=== PATIENT | female | born 1995 | race Caucasian/White ===

== ENCOUNTER 2017-01-14 13:57 | Emergency (ER) | payer BC ==
[2017-01-14 14:23] VITALS: BP 108/61
--- NOTE | 2017-01-14 14:41 | UC ---
Respiratory Complaint HPI - History of Current Complaint Chief Complaint: UCGU Stated Complaint: PERSONAL Time Seen by Provider: 01/14/17 14:41 Hx Last Menstrual Period: 2-3 weeks ago - Allergies/Home Medications Allergies/Adverse Reactions: Allergies Allergy/AdvReac Type Severity Reaction Status Date / Time Penicillins Allergy Hives Verified 01/14/17 14:16 Home Medications: Home Medications Iud 01/14/17 [History] PMH/Surg Hx/FS Hx/Imm Hx - Surgical History Surgical History: Yes Surgery Procedure, Year, and Place: appendix. bunions - Family History Known Family History: Positive: Other - cancer - Social History Alcohol Use: Occasionally Substance Use Type: None Smoking Status (MU): Never Smoked Tobacco Physical Exam Vital Signs: Initial Vital Signs Temp 37.1 C 01/14/17 14:18 Pulse 69 01/14/17 14:18 Resp 16 01/14/17 14:18 BP 108/61 01/14/17 14:18 Pulse Ox 100 01/14/17 14:18 UC Diagnostic Evaluation - Laboratory O2 Sat by Pulse Oximetry: 100
--- NOTE | 2017-01-14 14:58 | UC ---
Complaint Female HPI - HPI Summary HPI Summary: 21 YEAR OLD FEMALE PRESENTS WITH COMPLAINS OF ABDOMINAL PAIN AFTER RECENT INSERTION OF IUD. I WILL SEND HER TO THE ER TO RULE OUT IUD DISLODGMENT. - History Of Current Complaint Chief Complaint: UCGU Stated Complaint: PERSONAL Time Seen by Provider: 01/14/17 14:41 Hx Obtained From: Patient Hx Last Menstrual Period: 2-3 weeks ago Onset/Duration: Sudden Onset Timing: Constant Severity Initially: Moderate Severity Currently: Moderate Pain Scale Used: 0-10 Numeric - 7 Character: Sharp Aggravating Factor(s): [place] - Allergies/Home Medications Allergies/Adverse Reactions: Allergies Allergy/AdvReac Type Severity Reaction Status Date / Time Penicillins Allergy Hives Verified 01/14/17 14:16 Home Medications: Home Medications Iud 01/14/17 [History] PMH/Surg Hx/FS Hx/Imm Hx Previously Healthy: Yes - Surgical History Surgical History: Yes Surgery Procedure, Year, and Place: appendix. bunions - Family History Known Family History: Positive: Other - cancer - Social History Alcohol Use: Occasionally Substance Use Type: None Smoking Status (MU): Never Smoked Tobacco Review of Systems Constitutional: Negative Skin: Negative Eyes: Negative ENT: Negative Respiratory: Negative Cardiovascular: Negative Gastrointestinal: Negative Genitourinary: Other - PELVIC PAIN Motor: Negative Neurovascular: Negative Musculoskeletal: Negative Neurological: Negative Psychological: Negative All Other Systems Reviewed And Are Negative: Yes Physical Exam Triage Information Reviewed: Yes Vital Signs: Initial Vital Signs Temp 37.1 C 01/14/17 14:18 Pulse 69 01/14/17 14:18 Resp 16 01/14/17 14:18 BP 108/61 01/14/17 14:18 Pulse Ox 100 01/14/17 14:18 Vital Signs Reviewed: Yes Eye Exam: Normal ENT Exam: Normal Dental Exam: Normal Neck exam: Normal Neck: Positive: 1 Respiratory Exam: Normal Cardiovascular Exam: Normal Abdominal Exam: Normal Musculoskeletal Exam: Normal Neurological Exam: Normal Psychological Exam: Normal Skin Exam: Normal Complaint Female Dx - Differential Dx/Diagnosis Provider Diagnoses: PELVIC PAIN Discharge - Discharge Plan Condition: Stable Disposition: HOME Patient Education Materials: Pelvic Pain in Women (ED) Referrals: No Primary Care Phys,NOPCP [Primary Care Provider] - Additional Instructions: PLEASE GO TO ER TO ASSESS IUD PLACEMENT.
== END 2017-01-14 15:00 | disposition home or self-care (01) ==
LOC: UCEAST 13:57
DX: R10.2 Pelvic and perineal pain (principal); Z88.0 Allergy status to penicillin
CPT/HCPCS: 99211; G0463

== ENCOUNTER 2017-01-14 15:55 | Emergency (ER) | payer BC ==
--- NOTE | 2017-01-14 18:05 | RAD ---
HISTORY: Pelvic pain COMPARISONS: None TECHNIQUE: Multiple transverse and longitudinal ultrasound images were obtained of the pelvis using grayscale, color Doppler, and spectral Doppler imaging using the endovaginal transducer. FINDINGS: UTERUS: The uterus measures 8.1 x 3.5 x 5.3 cm. The uterus is normal in shape, size, contour, and echotexture. ENDOMETRIUM: The endometrial stripe is smooth. The endometrium measures 0.5 cm in thickness. An IUD is noted centrally within the endometrial cavity towards the fundus. CUL-DE-SAC: There is a small amount of simple fluid within the cul-de-sac. This may be physiologic in a reproductive age female. RIGHT OVARY: The right ovary measures 2.7 x 1.4 x 3.5 cm. Multiple follicles are noted . Normal arterial and venous waveforms are identifiable within the ovary on spectral Doppler imaging. LEFT OVARY: The left ovary measures 2.7 x 1.7 x 2.8 cm. Multiple follicles are noted. Normal arterial and venous waveforms are identifiable within the ovary on spectral Doppler imaging. BLADDER: The bladder is not well visualized. OTHER: None IMPRESSION: 1. AN IUD IS NOTED CENTRALLY WITHIN THE ENDOMETRIAL CAVITY TOWARDS THE FUNDUS. 2. THERE IS SMALL AMOUNT OF FLUID WITHIN THE PELVIS. THIS MAY BE PHYSIOLOGIC WITHIN A REPRODUCTIVE AGE FEMALE FEMALE. 3. OTHERWISE UNREMARKABLE ULTRASOUND OF THE PELVIS. NO SONOGRAPHIC FEATURES OF TORSION. PLEASE NOTE THAT PARTIAL OR INTERMITTENT TORSION MAY BE SONOGRAPHICALLY NORMAL.
[2017-01-14 19:07] VITALS: BP 110/81
--- NOTE | 2017-01-15 07:46 | ED ---
Rodger Andrea Angela, scribed for Torito Kirby MD on 01/14/17 at 1659 . GI/ HPI - HPI Summary HPI Summary: This pt is a 21 y/o female presenting to [facility] from [facility] c/o worsening pelvic pain s/p IUD placement. Pt reports the IUD was placed on 10/30/16 and 2 weeks after her pain began intermittently, worsening and becoming more constant now over the last couple of weeks. She states her pain feels like menstrual cramps and describes rectal pressure with urination. Pt notes that her pain is aggravated with intercourse. She reports her IUD was placed at [facility] where she was seen twice for her pain and was told both times the IUD site was inflamed. [facility] was only able to do pelvic exams and was not able to do an US as they didn't have one. Pt was last seen in [place] 2-3 weeks ago. She denies back pain, fever, urinary symptoms, dysuria, hematuria. LMP: sporadic and unsure. Pt is concerned for poor placement of IUD. - History of Current Complaint Chief Complaint: EDOBProblems Time Seen by Provider: 01/14/17 16:30 Stated Complaint: CRAMPING/ABNORMAL VAG BLEEDING Hx Obtained From: Patient Hx Last Menstrual Period: 2-3 weeks ago Onset/Duration: Started Weeks Ago, Still Present Timing: Lasting Weeks Pain Intensity: 3 Pain Characteristics: Cramping Associated Signs and Symptoms: Negative: Back Pain, Dizziness, Weakness, Nausea , Vomiting, Dysuria Additional Signs & Symptoms: Positive: IUD. Negative: Vaginal Bleeding Aggravating Factor(s): Nothing Alleviating Factor(s): Nothing - Allergy/Home Medications Allergies/Adverse Reactions: Allergies Allergy/AdvReac Type Severity Reaction Status Date / Time Penicillins Allergy Hives Verified 01/14/17 14:16 PMH/Surg Hx/FS Hx/Imm Hx Endocrine/Hematology History: Denies: Hx Blood Disorders Cardiovascular History: Denies: Hx Congenital Heart Disease Respiratory History: Denies: Hx Asthma GI History: Denies: Hx Crohn's Disease, Hx Gastroesophageal Reflux Disease, Hx Ulcer - Surgical History Surgery Procedure, Year, and Place: appendix. bunions Infectious Disease History: No Infectious Disease History: Denies: History Other Infectious Disease, Traveled Outside the [place] in Last 30 Days - Family History Known Family History: Positive: Other - cancer - Social History Alcohol Use: Occasionally Substance Use Type: Reports: None Smoking Status (MU): Never Smoked Tobacco Review of Systems Negative: Fever, Chills Positive: Other - abdominal cramps Positive: other - rectal pressure with urination Positive: Other - NEGATIVE: back pain All Other Systems Reviewed And Are Negative: Yes Physical Exam Triage Information Reviewed: Yes Vital Signs On Initial Exam: Initial Vitals Temp Pulse Resp BP Pulse Ox 98.8 F 72 16 103/86 100 01/14/17 15:58 01/14/17 15:58 01/14/17 15:58 01/14/17 15:58 01/14/17 15:58 Vital Signs Reviewed: Yes Appearance: Positive: Well-Appearing Skin: Positive: Warm, Skin Color Reflects Adequate Perfusion, Dry Head/Face: Positive: Normal Head/Face Inspection Eyes: Positive: Normal ENT: Positive: Normal ENT inspection Neck: Positive: Supple, Nontender Respiratory/Lung Sounds: Positive: Clear to Auscultation, Breath Sounds Present Cardiovascular: Positive: RRR Abdomen Description: Positive: Nontender, Soft Bowel Sounds: Positive: Present Musculoskeletal: Positive: Normal Neurological: Positive: Normal Psychiatric: Positive: Normal, Affect/Mood Appropriate - [place] Coma Scale Coma Scale Total: 15 Diagnostics - Vital Signs Vital Signs Temp Pulse Resp BP Pulse Ox 01/14/17 16:08 98.8 F 72 16 103/86 100 01/14/17 15:58 98.8 F 72 16 103/86 100 - Laboratory Lab Statement: Any lab studies that have been ordered have been reviewed, and results considered in the medical decision making process. - Ultrasound No standard instances Ultrasound Interpretation: Positive (See Comments) - Transvaginal US IMPRESSION : 1. An IUD is noted centrally within the endometrial cavity towards the fundus. 2. There is small amount of fluid within the pelvis. This may be physiologic within a reproductive age female. 3. Otherwise unremarkable ultrasound of the pelvis. No sonographic features of torsion. Please note that partial or intermittent torsion may be sonographically normal. Ultrasound Interpretation Completed By: Radiologist Re-Evaluation - Re-Evaluation First Eval Re-Evaluation Time: 18:41 Comment: Updated the pt on US transvaginal results. She was advised to follow up with Dr. Arias. GIGU Course/Dx - Course Course Of Treatment: Ms. Penaloza tells me that she has been evaluated a [facility] who told her she didn't have an infection and was negative for . They told her that her cervix was inflamed and had a bruise on it. They recommended that she have the IUD checked. U/S here shows the IUD in place and I spoke with Dr. Arias who readily agreed to follow her up for this. - Diagnoses Provider Diagnoses: Pelvic pain Discharge - Discharge Plan Condition: Stable Disposition: HOME Patient Education Materials: Pelvic Pain in Women (ED) Referrals: No Primary Care Phys,NOPCP [Primary Care Provider] - Kaila Arias MD [Medical Doctor] - Additional Instructions: Please follow up with Dr. Arias regarding your pelvic pain. The documentation as recorded by the Rodger upton Angela accurately reflects the service I personally performed and the decisions made by me, Torito Kirby MD.
== END 2017-01-14 19:06 | disposition home or self-care (01) ==
LOC: ED 15:55
DX: R10.2 Pelvic and perineal pain (principal); N93.9 Abnormal uterine and vaginal bleeding, unspecified; Z97.5 Presence of (intrauterine) contraceptive device; Z88.0 Allergy status to penicillin
CPT/HCPCS: 76830; 99282

== ENCOUNTER 2017-07-15 12:58 | Emergency (ER) | payer BC ==
[2017-07-15 13:04] VITALS: BP 112/87
--- NOTE | 2017-07-15 13:32 | ED ---
HPI Chest Pain - HPI Summary HPI Summary: 22 female presents with right-sided chest pain for the past week. She states she had a chest x-ray week ago with diagnosis of costochondritis. She states she has been taking ibuprofen without relief. She states this is causing her shortness of breath. She states 3 weeks ago she had a cough for 2 weeks and involve the chest pain afterwards. She is on Mirena. She denies abdominal pain. She denies any nausea or vomiting. States the pain starts on the anterior side of her right lower ribs and then radiates to her back. She denies any family cardiac history. She denies any pain or swelling in her calf muscles. She was seen at [facility] and sent here. - History of Current Complaint Chief Complaint: EDChestWallPain Time Seen by Provider: 07/15/17 13:08 Hx Last Menstrual Period: 2-3 weeks ago Pain Intensity: 8 - Allergy/Home Medications Allergies/Adverse Reactions: Allergies Allergy/AdvReac Type Severity Reaction Status Date / Time MS Penicillins [Penicillins] Allergy Hives Verified 01/14/17 14:16 PMH/Surg Hx/FS Hx/Imm Hx Endocrine/Hematology History: Denies: Hx Blood Disorders Cardiovascular History: Denies: Hx Congenital Heart Disease Respiratory History: Denies: Hx Asthma GI History: Denies: Hx Crohn's Disease, Hx Gastroesophageal Reflux Disease, Hx Ulcer - Surgical History Surgery Procedure, Year, and Place: appendix. bunions Infectious Disease History: No Infectious Disease History: Denies: History Other Infectious Disease, Traveled Outside the [place] in Last 30 Days - Family History Known Family History: Positive: Other - cancer Negative: Cardiac Disease - Social History Alcohol Use: Occasionally Substance Use Type: Reports: None Smoking Status (MU): Never Smoked Tobacco Review of Systems Negative: Fever Positive: Chest Pain Positive: Shortness Of Breath, Cough - resolved Negative: Abdominal Pain All Other Systems Reviewed And Are Negative: Yes Physical Exam Triage Information Reviewed: Yes Vital Signs On Initial Exam: Initial Vitals Temp Pulse Resp BP Pulse Ox 97.8 F 77 16 112/87 100 07/15/17 13:00 07/15/17 13:00 07/15/17 13:00 07/15/17 13:00 07/15/17 13:00 Vital Signs Reviewed: Yes Appearance: Positive: Well-Appearing Skin: Positive: Warm, Dry Head/Face: Positive: Normal Head/Face Inspection Eyes: Positive: Normal, EOMI, CHRISTINA, Conjunctiva Clear ENT: Positive: Normal ENT inspection, Pharynx normal, TMs normal Neck: Positive: Supple, Nontender, No Lymphadenopathy Respiratory/Lung Sounds: Positive: Clear to Auscultation, Breath Sounds Present , Other - tenderness over right side of chest 9-12 and sternum Cardiovascular: Positive: Normal, RRR Abdomen Description: Positive: Nontender, Soft Bowel Sounds: Positive: Present Musculoskeletal: Positive: Normal Neurological: Positive: Normal Psychiatric: Positive: Normal Diagnostics - Vital Signs Vital Signs Temp Pulse Resp BP Pulse Ox 07/15/17 13:00 97.8 F 77 16 112/87 100 - Laboratory Result Diagrams: 07/15/17 13:56 07/15/17 13:56 Lab Statement: Any lab studies that have been ordered have been reviewed, and results considered in the medical decision making process. - EKG No standard instances Cardiac Rate: NL EKG Rhythm: Sinus Rhythm ST Segment: Normal EKG Interpretation: normal sinus rhythm Chest Pain Course/Dx - Course Course Of Treatment: 22 female presents with right-sided chest pain for the past week. She states she had a chest x-ray week ago with diagnosis of costochondritis. She states she has been taking ibuprofen without relief. She states this is causing her shortness of breath. She states 3 weeks ago she had a cough for 2 weeks and involve the chest pain afterwards. She is on Mirena. She denies abdominal pain. She denies any nausea or vomiting. States the pain starts on the anterior side of her right lower ribs and then radiates to her back. She denies any family cardiac history. She denies any pain or swelling in her calf muscles. She was seen at [facility] and sent here. On exam tenderness to right ribs. Nontender abdomen. EKG normal. d-dimer neg. troponin neg. discussed with dr dsouza no need to do CT. will treat as chest wall pain and have continue ibuprofen. patient understand and agrees with plan. - Chest Pain Differential Diagnosis/HQI/PQRI: Chest Wall, Lower Respiratory Infection, Pulmonary Embolism - Diagnoses Provider Diagnoses: Chest wall pain Discharge - Discharge Plan Condition: Good Disposition: HOME Patient Education Materials: Chest Wall Pain (ED) Referrals: [facility] - Alex HERNÁNDEZ [Primary Care Provider] - Additional Instructions: Take ibuprofen every 6 hours as needed for pain Will take time to get better Follow up with Alex as needed Return to ED if develop any new or worsening symptoms
[2017-07-15 14:06] LABS: ABS Basophils 0 10^3/ul (0-0.2); ABS Eosinophils 0.1 10^3/ul (0-0.6); ABS Monocytes 0.5 10^3/ul (0-0.8); ABS Neutrophils 4.7 10^3/ul (1.5-7.7); ABS Nucleated RBC 0 10^3/ul; Eosinophil % 1.3 % (0-6); Hematocrit 37 % (35-47); Hemoglobin 12.3 g/dl (12.0-16.0); Lymphocyte % 27.2 % (25-47); Mean Corpuscular HGB Conc 34 g/dl (31-36); Mean Corpuscular Hemoglobin 33 pg (27-31); Mean Corpuscular Volume 98 fL (80-97); Mean Platelet Volume 8 um3 (7.4-10.4); Nucleated Red Blood Cells % 0; Platelet Count 188 10^3/ul (150-450); Red Blood Count 3.75 10^6/ul (4.0-5.4); Red Cell Distribution Width 12 % (10.5-15); White Blood Count 7.2 10^3/ul (3.5-10.8)
[2017-07-15 14:24] LABS: EGFR Non-African American 122.6 (>60)
== END 2017-07-15 15:44 | disposition home or self-care (01) ==
LOC: ED 12:58
DX: R07.89 Other chest pain (principal); M94.0 Chondrocostal junction syndrome [Tietze]; R06.02 Shortness of breath; R05 Cough
CPT/HCPCS: 36415; 80053; 84484; 85025; 85379; 86140; 93005; 99282